=== PATIENT | male | born 1985 | race Caucasian/White ===

== ENCOUNTER 2017-03-22 21:40 | Emergency (ER) | payer OTHER ==
[~2017-03-22] VITALS: Ht 185.4 cm; Wt 106.8 kg
[~2017-03-22 21:40] MED LIST: PERCOCET 325 MG1 TA2 PO
[2017-03-22 21:47] VITALS: BP 158/85; PULSE 83; TEMP 98.7
[2017-03-22] MEDS ORDERED: ULTRAM 50MG TAB50 MG PO (21:50)
[2017-03-22] MEDS ORDERED: MOBIC15 MG PO (21:50)
[2017-03-22] MEDS ORDERED: 00186-0372-20 IH (21:50)
[2017-03-22 22:53] LABS: BASO % 0.4 % (0.0-2.0); EOS # 0.1 (0.0-0.7); EOS % 1.1 % (0-4.0); GRAN # 3.4 (1.4-6.5); GRAN % 62.3 % (42.2-75.2); LYMPH # 1.5 (1.2-3.4); LYMPH % 27.4 % (20.0-51.0); MEAN CELL VOLUME 85 fl (80.0-100.0); MEAN CORPUSCULAR HEMOGLOBIN 30 pg (27.0-31.0); MEAN CORPUSCULAR HGB CONC 35 g/dl (33.0-37.0); MEAN PLATELET VOLUME 9.6 fl (7.4-10.4); MONO # 0.5 (0.1-0.6); MONO % 8.4 % (1.7-9.3); PLATELET COUNT 198 K/mm3 (130-400); RED BLOOD COUNT 5.39 M/mm3 (4.20-5.60); REDCELL DISTRIBUTION WIDTH-CV 12.4 % (11.5-14.5)
[2017-03-22 23:08] LABS: ALBUMIN 5.3 gm/dL (3.5-5.0); BILIRUBIN,TOTAL 2.4 mg/dL (0.0-1.0); C-REACTIVE PROTEIN 1.7 mg/dL (0.0-0.9); CALCIUM 9.6 mg/dL (8.4-10.2); CREATININE, serum 1.02 mg/dL (0.66-1.25)
[2017-03-22 23:11] LABS: COLLECTION METHOD CLEAN CATCH
[2017-03-22 23:16] LABS: MUCOUS Present /lpf; PH 7 (5-8); SQUAMOUS EPITHELIAL None Seen /hpf; URINE APPEARANCE Clear; URINE BACTERIA None Seen /hpf; URINE BILIRUBIN Negative (NEGATIVE); URINE BLOOD Negative (NEGATIVE); URINE COLOR Straw; URINE GLUCOSE Negative (NEGATIVE); URINE KETONE Negative (NEGATIVE); URINE LEUKOCYTE ESTERASE Negative (NEGATIVE); URINE NITRATE Negative (NEGATIVE); URINE PROTEIN(semi-quant) Negative (NEGATIVE); URINE RBC 0-2 /hpf; URINE UROBILINOGEN Negative (NEGATIVE)
[2017-03-23] MEDS ORDERED: NORCO 325 MG-51 TAB PO (00:57)
== END 2017-03-23 01:38 | disposition home or self-care (01) ==
LOC: COL.ER 21:40
PROVIDERS: Emergency Medicine
DX: R10.11 Right upper quadrant pain (principal); R11.0 Nausea; K21.9 Gastro-esophageal reflux disease without esophagitis; J45.909 Unspecified asthma, uncomplicated
CPT/HCPCS: J2270; J2405; J7030; Q9967

== ENCOUNTER 2017-12-25 12:14 | Emergency (ER) | payer OTHER ==
[~2017-12-25] VITALS: Ht 185.4 cm; Wt 104.5 kg
[~2017-12-25 12:14] MED LIST changes: +00186-0372-20 IH; +MOBIC15 MG PO; +NORCO 325 MG-51 TAB PO; +ULTRAM 50MG TAB50 MG PO
[2017-12-25 12:19] VITALS: TEMP 98
[2017-12-25] MEDS ORDERED: NORCO 325 MG-51 TAB PO (13:00)
[2017-12-25 13:43] VITALS: BP 113/84; PULSE 76
== END 2017-12-25 13:45 | disposition home or self-care (01) ==
LOC: COL.ER 12:14
DX: M25.531 Pain in right wrist (principal); J44.9 Chronic obstructive pulmonary disease, unspecified; Z86.69 Personal history of other diseases of the nervous system and sense organs
CPT/HCPCS: Q4021

== ENCOUNTER 2018-12-15 17:47 | Emergency (ER) | payer OTHER ==
[~2018-12-15] VITALS: Ht 185.4 cm; Wt 111.4 kg
[2018-12-15 18:03] VITALS: TEMP 98
[2018-12-15 20:22] LABS: COLLECTION METHOD CLEAN CATCH
[2018-12-15 20:29] LABS: MUCOUS Present /lpf; PH 5 (5-8); SQUAMOUS EPITHELIAL None Seen /hpf; URINE APPEARANCE Clear; URINE BACTERIA None Seen /hpf; URINE BILIRUBIN Negative (NEGATIVE); URINE BLOOD Negative (NEGATIVE); URINE COLOR Yellow; URINE GLUCOSE Negative (NEGATIVE); URINE KETONE Trace (NEGATIVE); URINE LEUKOCYTE ESTERASE Negative (NEGATIVE); URINE NITRATE Negative (NEGATIVE); URINE PROTEIN(semi-quant) Negative (NEGATIVE); URINE RBC 0-2 /hpf
[2018-12-15] MEDS ORDERED: LIDODERM 5% PATC1 EA TP (20:51)
[2018-12-15] MEDS ORDERED: FLEXERIL 1010 MG/TAB PO (20:51)
[2018-12-15 21:12] VITALS: BP 132/68; PULSE 88
== END 2018-12-15 21:13 | disposition home or self-care (01) ==
LOC: COL.ER 17:47
PROVIDERS: Nurse Practitioner
DX: M54.5 Low back pain (principal); G89.29 Other chronic pain; J45.909 Unspecified asthma, uncomplicated
CPT/HCPCS: J1885; J2360